=== PATIENT | female | born 1980 | race African-American/Black ===

== ENCOUNTER 2020-05-15 13:10 | Emergency (ER) | payer OTHER, SELFPAY ==
[2020-05-15 13:27] VITALS: BP 162/70; PULSE 117; RESP 20; TEMP 36.4
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
== END 2020-05-15 14:25 | disposition home or self-care (01) ==
PROVIDERS: Emergency Provider Emergency Medicine
DX: S29.012A Strain of muscle and tendon of back wall of thorax, initial encounter (principal); V43.52XA Car driver injured in collision with other type car in traffic accident, initial encounter
CPT/HCPCS: 99283